=== PATIENT | male | born 1995 | race Caucasian/White ===

== ENCOUNTER 2017-04-18 14:19 | Emergency (ER) | payer SELFPAY ==
[~2017-04-18] VITALS: Ht 172.7 cm; Wt 52.2 kg
[2017-04-18] MEDS ORDERED: NS 100 ML (IVPB) BAG IV ONE (17:00)
[2017-04-18] MEDS ORDERED: CATHETER FLUSH 10 ML SYR IV PRN (17:00)
[2017-04-18] MEDS ORDERED: IOHEXOL 350 MG/ML 100 ML (OMNIPAQUE 350) VIAL IV ONE (17:00)
--- NOTE | 2017-04-18 17:47 | Diagnostic Imaging Report ---
PROCEDURE: CT neck soft tissue with contrast. TECHNIQUE: Multiple contiguous axial images were obtained through the neck after the administration of contrast. INDICATION: Difficulty swallowing. CT of the neck soft tissues obtained with IV contrast bolus. COMPARISON: There is no prior study for comparison. FINDINGS: Visualized portions of the lung apices are clear. The parotid glands and submandibular glands appear symmetric. There is no evidence of airway narrowing. The thyroid gland appears unremarkable. Epiglottis and piriform sinuses appear unremarkable. There is no retropharyngeal soft tissue mass or swelling. There is no overt abscess. There are some borderline size nodes in the parapharyngeal region which may be reactive. IMPRESSION: Borderline sized parapharyngeal nodes are present which may be reactive. No evidence of abscess or significant airway narrowing. Epiglottis and piriform sinuses appear unremarkable. Dictated by: Dictated on workstation # [id number]
[2017-04-18] MEDS ORDERED: NS IV 1000 ML 1,000 ML IV ONE (19:21)
[2017-04-18] MEDS ORDERED: KETOROLAC 30 MG/ML VIAL IVP STA (19:21)
[2017-04-18] MEDS ORDERED: ONDANSETRON 4 MG/2 ML (SDV) Z0FRAN IVP ONE (19:30)
[2017-04-18] MEDS ORDERED: cefTRIAXone INJECTION 1,000 MG in NS (IVPB) 50 ML IV ONE (19:45)
--- NOTE | 2017-04-18 19:49 | ED EENT ---
History of Present Illness General Chief Complaint: Foreign Body Stated Complaint: PILL STUCK IN THROAT Nursing Triage Note: c/o possible Nyquil pill lodged in throat from Wednesday night. Reports inability to eat or drink. No obvious drooling noted. No respiratory distress noted. Source: patient Exam Limitations: no limitations History of Present Illness Time seen by provider: 19:21 Initial Comments 21-year-old male patient presents to the emergency Department with reports of feeling like a neck will pill had gotten stuck in his throat Wednesday night. States he tried eating and drinking to move the pill. Also reports having flulike symptoms last several days. Has had intermittent sweats, chills, sore throat, malaise, nausea, and vomiting. Patient reports also trying to drink coffee after getting the pill stuck in his throat. Denies any shortness of air , difficulty swallowing, or difficulty tolerating liquids. Timing/Duration: abrupt, other (Wednesday) Location: throat Prearrival Treatment: other (eating and drinking) Modifying Factors: Worse With Other (worse with swallowing) Allergies and Home Medications Allergies Coded Allergies: No Known Drug Allergies (Unverified , 04/18/17) Home Medications No Active Prescriptions or Reported Meds Review of Systems Constitutional: see HPI, chills, No dizziness, fever (possibly has had intermittent fevers), malaise Eyes: No Symptoms Reported Ears: No Symptoms Reported Nose: denies congestion, denies other (denies rhinorrhea, nasal congestion, or sneezing) Mouth: no symptoms reported Throat: see HPI Respiratory: No cough, No phlegm, No short of breath, No stridor, No wheezing Cardiovascular: no symptoms reported Gastrointestinal: No abdominal pain, No constipation, No diarrhea, loss of appetite, nausea, vomiting Musculoskeletal: no symptoms reported Skin: no symptoms reported Neurological: No Symptoms Reported Immunological/Allergic: no symptoms reported All Other Systems Reviewed Negative Unless Noted: Yes (Negative excepted noted.) Past [id number] Hx Patient Social History Alcohol Use: Denies Use Recreational Drug Use: No Recent Foreign Travel: No Contact w/Someone Who Travel: No Recent Infectious Disease Expo: No Surgeries History of Surgeries: No (left hip bursitis) Respiratory History of Respiratory Disorde: No Cardiovascular History of Cardiac Disorders: No Neurological History of Neurological Disord: No Genitourinary History of Genitourinary Disor: No Gastrointestinal History of Gastrointestinal Di: No Musculoskeletal History of Musculoskeletal Dis: No Endocrine History of Endocrine Disorders: No HEENT History of HEENT Disorders: No Cancer History of Cancer: No Psychosocial History of Psychiatric Problem: No Integumentary History of Skin or Integumenta: No Blood Transfusions History of Blood Disorders: No Reviewed Nursing Assessment Reviewed/Agree w Nursing PMH: Yes Family Medical History Significant Family History: No Pertinent Family Hx Physical Exam Vital Signs Vital Sign - Last 12Hours 04/18/17 16:10 Temp 98.5 Pulse 128 Resp 18 B/P (MAP) 129/90 (103) Pulse Ox 98 O2 Delivery Room Air General Appearance: WD/WN, no apparent distress Eyes: bilateral eye normal inspection, bilateral eye PERRL, bilateral eye EOMI Ears: bilateral ear auricle normal, bilateral ear canal normal, bilateral ear TM normal Nose: normal inspection Mouth/Throat: No excessive drooling, No mandibular swelling, No maxillary swelling, pharynx tenderness, No tongue swollen, tonsillar exudate, tonsillar swelling, No trismus, No voice changes, other (roof of the mouth is scalded) Neck: non-tender, full range of motion, supple, lymphadenopathy (R), lymphadenopathy (L) Cardiovascular: normal peripheral pulses, no edema, no murmur, tachycardia Respiratory: lungs clear, normal breath sounds, no respiratory distress, no accessory muscle use Gastrointestinal: normal bowel sounds, non tender, soft, no organomegaly, No distended Neurologic/Psychiatric: alert, normal mood/affect, oriented x 3 Skin: normal color, warm/dry, rash (sandpaper like rash of the torso and upper extremities.) Progress/Results/Core Measures Results/Orders Lab Results Laboratory Tests Test 04/18/17 19:40 Range/Units My Orders Orders - DEMETRICE VASQUEZ Saline Lock/Iv-Start (04/18/17 16:43) Ct Neck (Soft Tissue) W (04/18/17 16:43) Iohexol Injection (Omnipaque 350 Mg/Ml 1 (04/18/17 17:00) Sodium Chloride Flush (Catheter Flush Sy (04/18/17 17:00) Ns (Ivpb) (Sodium Chloride 0.9% Ivpb Bag (04/18/17 17:00) Pharmacy Communication (Pharmacy Communi (04/18/17 16:47) Rapid Strep A Screen (04/18/17 19:21) Ns Iv 1000 Ml (Sodium Chloride 0.9%) (04/18/17 19:21) Ketorolac Injection (Toradol Injection) (04/18/17 19:21) Ondansetron Injection (Zofran Injectio (04/18/17 19:30) Ceftriaxone Injection (Rocephin Injectio (04/18/17 19:45) Medications Given in ED Current Medications Medications Dose Ordered Sig/Vikas Route Start Time Stop Time Status Last Admin Dose Admin Iohexol 100 ml ONCE ONCE IV 04/18/17 17:00 04/18/17 17:01 DC 04/18/17 17:32 65 ML Sodium Chloride 10 ml NEEDED PRN IV 04/18/17 17:00 04/18/17 17:32 10 ML Sodium Chloride 100 ml ONCE ONCE IV 04/18/17 17:00 04/18/17 17:01 DC 04/18/17 17:32 80 ML Vital Signs/I&O Vital Sign - Last 12Hours 04/18/17 16:10 Temp 98.5 Pulse 128 Resp 18 B/P (MAP) 129/90 (103) Pulse Ox 98 O2 Delivery Room Air Blood Pressure Mean: 103 Diagnostic Imaging Diagonstic Imaging: CT Plain Films/CT/US/NM/MRI: other (soft tissue neck) Comments CT NECK (SOFT TISSUE) W PROCEDURE: CT neck soft tissue with contrast. TECHNIQUE : Multiple contiguous axial images were obtained through the neck after the administration of contrast. INDICATION: Difficulty swallowing. CT of the neck soft tissues obtained with IV contrast bolus. COMPARISON: There is no prior study for comparison. FINDINGS: Visualized portions of the lung apices are clear. The parotid glands and submandibular glands appear symmetric. There is no evidence of airway narrowing. The thyroid gland appears unremarkable. Epiglottis and piriform sinuses appear unremarkable. There is no retropharyngeal soft tissue mass or swelling. There is no overt abscess. There are some borderline size nodes in the parapharyngeal region which may be reactive. IMPRESSION: Borderline sized parapharyngeal nodes are present which may be reactive. No evidence of abscess or significant airway narrowing. Epiglottis and piriform sinuses appear unremarkable. Dictated by: Dictated on workstation # [id number] Reviewed: Reviewed by Me (radiology report reviewed by me) Departure Impression Impression: Primary Impression: Acute streptococcal tonsillitis Disposition: HOME, SELF-CARE Condition: Improved Departure-Patient Inst. Decision time for Depature: 20:01 Referrals: NO,LOCAL PHYSICIAN (PCP/Family) Primary Care Physician Patient Instructions: Scarlet Fever, Sore Throat, Adult (DC) Add. Discharge Instructions: All discharge instructions reviewed with patient and/or family. Voiced understanding. Medications as instructed. Tylenol Extra Strength 1000 mg by mouth every 6 hours as needed for pain or fever. Ibuprofen 600 mg by mouth every 6-8 hours as needed for pain or fever. Soft diet until symptoms improve, then increase diet slowly. Throat lozenges and sprays [id number] as needed for throat pain. Follow-up with the primary care provider of your choice to establish care and for recheck. Return to the emergency department immediately for worsened pain, fever, difficulty breathing, inability to swallow , swelling, vomiting, decreased urination, or any other concerns. Scripts Amoxicillin (Amoxicillin) 500 Mg Capsule 1000 MG PO TID, #60 CAP 0 Refills Prov: DEMETRICE VASQUEZ 04/18/17 Work/School Note: Local [employer]ing, Work Release Form Date Seen in the Emergency Department: Apr 18, 2017 Return to Work: Apr 21, 2017 Restrictions: Return-No Fever (24hrs), Return-No Vomiting(24hrs) DEMETRICE VASQUEZ Apr 18, 2017 19:49
[2017-04-18] MEDS ORDERED: AMOX500C2 PO (20:04)
[2017-04-18 20:40] VITALS: BP 129/90
== END 2017-04-18 20:40 | disposition home or self-care (01) ==
LOC: ER 14:22
DX: J03.00 Acute streptococcal tonsillitis, unspecified (principal); Z98.890 Other specified postprocedural states
CPT/HCPCS: 70491; 87430